=== PATIENT | female | born 1945 | race Hispanic/Latino ===

== ENCOUNTER 2018-09-07 05:30 | Day surgery (SDC) | payer OTHER, MEDICARE ==
[2018-09-01 15:57] LABS: BASOPHILS % (AUTO) 0.9 % (0.0-5.0); EOSINOPHILS % (AUTO) 1.2 % (0.0-8.0); LYMPHOCYTES % (AUTO) 29.9 % (21.0-51.0); MEAN CORPUSCULAR HEMOGLOBIN 30.6 pg (27.0-33.0); MEAN CORPUSCULAR HGB CONC 33.8 g/dL (32.0-36.0); MEAN CORPUSCULAR VOLUME 90.6 fL (79-99); MONOCYTES % (AUTO) 7.2 % (3.0-13.0); NEUTROPHILS % (AUTO) 60.8 % (40.0-77.0); PLATELET COUNT (AUTO) 310 K/uL (130-400); RED BLOOD CELL COUNT(AUTO) 4.52 MIL/uL (4.00-5.50); RED CELL DISTRIBUTION WIDTH 13.5 % (11.0-15.5)
[2018-09-01 16:13] VITALS: BP 138/65
[2018-09-01 17:09] LABS: CREATININE 0.7 mg/dL (0.5-1.5); POTASSIUM 3.9 mmol/L (3.5-5.1)
[~2018-09-07] VITALS: Ht 154.9 cm; Wt 76.0 kg
[2018-09-07] VITALS (13 sets, daily range): BP systolic 96–120; BP diastolic 47–70
[~2018-09-07 05:30] MED LIST: ATOR10TA69 PO; LOSA50TA64 PO; PANT20TA PO
[2018-09-07] MEDS ORDERED: LACTATED RINGERS 1000ML 1,000 ML IV ONE (06:51)
[2018-09-07] MEDS: CEFAZOLIN SODIUM 1 GM VIAL IVP SCH ×2 (06:52→08:00)
[2018-09-07] MEDS ORDERED: LIDOCAINE HCL MDV 0.5% 50ML VIAL IJ ONE (06:59)
[2018-09-07] MEDS ORDERED: MIDAZOLAM HCL 1 MG/ML 2ML VIAL ONE (07:51)
[2018-09-07] MEDS ORDERED: FENTANYL CITRATE PF 50 MCG/1 ML 2ML VIAL ONE ×2 (07:51→08:33)
[2018-09-07] MEDS ORDERED: LIDOCAINE HCL 1% MDV 50ML VIAL ONE (08:27)
[2018-09-07] MEDS ORDERED: ONDANSETRON HCL 4 MG/2 ML VIAL ONE (08:36)
--- NOTE | 2018-09-07 10:23 | NUR ---
PT ASSISTED UP TO CHAIR AND TO CHANGE, PATIENT IN NO DISTRESS, DRESSING TO RIGHT HAND SHOWS NO ACTIVE BLEEDING. PATIENT STATES FEELING FINE.
--- NOTE | 2018-09-07 10:37 | NUR ---
DRESSING CLEAN AND DRY TO RIGHT HAND PATIENT STATES FEELING FIN IN NO DISTRESS. PATIENT SENT HOME WITH SPOUSE.
== END 2018-09-07 10:39 | disposition home or self-care (01) ==
LOC: DAH 05:30
PROVIDERS: ATTEND Neurological Surgery
DX: G56.01 Carpal tunnel syndrome, right upper limb (principal); M79.642 Pain in left hand; M79.641 Pain in right hand; Z79.899 Other long term (current) drug therapy; Z98.890 Other specified postprocedural states; I10 Essential (primary) hypertension
CPT/HCPCS: 36415; 64721; 80048; 85025; 93005; A4218; J0690; J2250; J2405; J3010 ×2; J3490 ×2; J7120